=== PATIENT | male | born 1975 | race Caucasian/White ===

== ENCOUNTER 2023-01-15 20:40 | Emergency (ER) | payer OTHER ==
[~2023-01-15] VITALS: Ht 193 cm; Wt 135.6 kg
--- OUTSIDE RECORDS SUMMARY | 2023-01-15 21:52 | XMS ---
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 Bakari VISIT COUNT (12 MO.) 2 [facility] 1 NOY Kerr TOTAL 3 NOTE: Visits indicate total known visits. ED/UCC VISIT TRACKING (12 MO.) 01/15/2023 20:40 [facility] [place] TYPE: Emergency COMPLAINT: - [facility] DIAGNOSES: - Discitis, unspecified, site unspecified - Low back pain, unspecified - Osteomyelitis of vertebra, lumbar region - Psoas muscle abscess - Sepsis, unspecified organism - Tachycardia, unspecified - back pain - Tachycardia 12/02/2022 14:53 [facility] DIAGNOSES: - Muscle spasm of back - back pain INPATIENT VISIT TRACKING (12 MO.) [facility] DIAGNOSES: - Alcohol abuse, uncomplicated - Discitis, unspecified, lumbar region - Discitis, unspecified, site unspecified - Intraspinal abscess and granuloma - Osteomyelitis of vertebra, lumbar region - Other bacterial infections of unspecified site - Psoas muscle abscess - Sepsis, unspecified organism - spinal abscess, osteomylitis, discitis [email or web address]
[2023-01-16] MEDS ORDERED: K-TAB ER20 MEQ PO (01:56)
[2023-01-16 02:20] VITALS: BP 121/70
== END 2023-01-16 02:20 | disposition home or self-care (01) ==
LOC: ED 20:40
DX: E86.0 Dehydration (principal); E87.6 Hypokalemia; I10 Essential (primary) hypertension; Z88.0 Allergy status to penicillin
CPT/HCPCS: 36415; 36573; 80048; 87045; 87046; 87493; 99284 25; A9270; J3480; J7121